=== PATIENT | female | born 2000 | race Caucasian/White ===

== ENCOUNTER 2021-12-24 16:19 | Inpatient (IN) ==
[2021-12-24 16:58] LABS: Bilirubin,Urine Negative (Negative); Blood,Urine Negative (Negative); Clarity,Urine Clear (Clear); Color,Urine Light-Yellow (Yellow); Glucose,Urine (UA) Normal (Normal); Ketones,Urine Negative (Negative); Leukocyte Esterase,Urine Negative (Negative); Nitrite,Urine Negative (Negative); Protein,Urine Negative (Neg-Trace); Specific Gravity,Urine 1.012 (1.010-1.025); Urobilinogen,Urine Normal (Normal)
[2021-12-24 17:07] LABS: Amphetamine Screen,Urine Negative ng/mL (Cutoff=1000); Barbiturate Screen,Urine Negative ng/mL (Cutoff=200); Benzodiazepines Screen,Urine Negative ng/mL (Cutoff=200); Cannabinoid Screen,Urine Negative ng/mL (Cutoff = 50); Cocaine Screen,Urine Negative ng/mL (Cutoff= 300); Opiate Screen,Urine Negative ng/mL (Cutoff=300); Phencyclidine Screen,Urine Negative ng/mL (Cutoff=25)
[2021-12-24 17:21] LABS: Basophils % 0.5 %; Eosinophils # 0.1 K/mcL (0.0-0.6); Eosinophils % 1.1 %; Hematocrit 44.8 % (35.3-44.9); Hemoglobin 14.4 g/dL (11.5-15.4); Immature Granulocytes % 0.4 % (0-4); Lymphocytes # 1.7 K/mcL (0.6-4.6); Lymphocytes % 21.8 %; Mean Corpuscular HGB Conc 32.1 g/dL (31.6-35.5); Mean Corpuscular Hemoglobin 24.7 pg (28.0-33.3); Mean Corpuscular Volume 76.7 fL (83.0-100.0); Mean Platelet Volume 10.8 fL (9.4-12.4); Monocytes # 0.7 K/mcL (0.0-1.3); Monocytes % 9.6 %; Platelet Count 287 K/mcL (140-400); Red Blood Count 5.84 M/mcL (3.82-4.97); Red Cell Distribution Width 14.6 % (11.5-14.5); Segmented Neutrophils % 66.6 %; White Blood Count 7.6 K/mcL (4.3-11.1)
[2021-12-24] MEDS ORDERED: Acetaminophen 325 MG TABLET PO ONE (17:26)
[2021-12-24 17:33] LABS: Acetaminophen < 10 mcg/mL (10-20); BUN/Creatinine Ratio 16 (6-26); Blood Urea Nitrogen 12 mg/dL (6-20); Calcium 9.2 mg/dL (8.6-10.3); Carbon Dioxide 23 mEq/L (23-29); Chloride 106 mEq/L (98-107); Ethanol < 10 mg/dL (Less than 10); Glucose 88 mg/dL (70-105); Osmolality,Calculated 283 (280-300); Potassium 3.8 mEq/L (3.5-5.1); Salicylate < 2.5 mg/dL (15.0-30.0); Sodium 137 mEq/L (136-145)
[2021-12-24] MEDS ORDERED: *HR* LORazepam 1 MG TABLET PO PRN (18:52)
[2021-12-24] MEDS ORDERED: Acetaminophen 325 MG TABLET PO PRN (18:52)
[2021-12-24] MEDS ORDERED: *HR* LORazepam 2 MG/ML VIAL IM PRN (18:52)
[2021-12-24] MEDS ORDERED: traZODone 50 MG TABLET PO PRN (18:52)
[2021-12-24] MEDS ORDERED: haloperidoL 5 MG TABLET PO PRN (18:52)
[2021-12-24] MEDS ORDERED: Haloperidol Lactate 5 MG/ML VIAL IM PRN (18:52)
[2021-12-24] MEDS ORDERED: Nicotine 2 MG GUM BC PRN (18:52)
[2021-12-24 22:09] LABS: Influenza A PCR Negative (Negative); Influenza B PCR Negative (Negative); Resp. Syncytial Virus PCR Negative (Negative)
[2021-12-24 22:10] LABS: SARS-CoV-2 by PCR (In House) Negative (Negative)
[2021-12-25] MEDS ORDERED: hydrOXYzine pamoate 25 MG CAPSULE PO PRN (01:06)
[2021-12-25] MEDS: Naltrexone HCl 50 MG TABLET PO SCH (08:36)
[2021-12-25] MEDS: cloNIDine HCL 0.1 MG TABLET PO SCH (08:41)
[2021-12-25] MEDS ORDERED: Nicotine 14 MG PATCH.TD24 TD SCH (09:00)
[2021-12-25] MEDS ORDERED: Nicotine 2 MG GUM BC PRN (14:35)
[2021-12-26 08:14] VITALS: BP 143/88; PULSE 74; TEMP 97.6; O2SAT 100
[2021-12-26] MEDS: Naltrexone HCl 50 MG TABLET PO SCH (08:32)
[2021-12-26] MEDS: cloNIDine HCL 0.1 MG TABLET PO SCH (08:35)
== END 2021-12-26 11:35 | disposition home or self-care (01) | DRG 885 ==
LOC: EMEROOARM 16:19 → 1ANU 23:08
PROVIDERS: ADMIT Psychiatry & Neurology Psychiatry; ATTEND Psychiatry & Neurology Psychiatry